=== PATIENT | female | born 1970 | race Caucasian/White ===

== ENCOUNTER 2016-12-30 05:46 | Emergency (ER) | payer OTHER ==
[2016-01-20 01:56] VITALS: BMI 33.2
[~2016-12-30 05:46] MED LIST: EMPAGLIFLOZIN; HYDROCODONE-APA1 TAB PO; IMITREX100 MG PO; LINAGLIPTIN; LYRICA25 MG PO; TOUJEO SOL300 UNIT/1 SC
== END 2016-12-30 06:58 | disposition home or self-care (01) ==
LOC: D.ER 05:46
DX: E10.40 Type 1 diabetes mellitus with diabetic neuropathy, unspecified (principal); Z79.4 Long term (current) use of insulin; M79.672 Pain in left foot; M79.671 Pain in right foot; F17.200 Nicotine dependence, unspecified, uncomplicated

== ENCOUNTER 2017-01-26 22:50 | Emergency (ER) | payer OTHER ==
[2016-01-20 01:56] VITALS: BMI 33.2
[2017-01-26 23:43] LABS: HEMATOCRIT 43.4 % (36.0-48.0); HEMOGLOBIN 14.4 g/dL (12-16); LYMPHOCYTES 29.2 % (15-50); MCH 29.3 pg (26.0-34.0); MCHC 33.2 g/dL (31.0-37.0); MCV 88.4 fL (80.0-100.0); MEAN PLATELET VOLUME 10.9 fL (7.4-10.4); NEUTROPHILS 65.3 % (40-80); PLATELET COUNT 177 10x3/uL (130-400); RBC 4.91 10x6/uL (4.00-5.40); RDW 13.7 % (11.5-14.5); WBC 10.5 10x3/uL (4.8-10.8)
[2017-01-26 23:55] LABS: ALBUMIN 3.2 g/dL (3.4-5.0); ALKALINE PHOSPHATASE 85 U/L (46-116); ALT (SGPT) 20 U/L (10-68); BILIRUBIN - TOTAL 0.47 mg/dL (0.2-1.3); CALC OSMOLALITY 283 mosm/kg (275-300); CALCIUM 8.5 mg/dL (8.5-10.1); CARBON DIOXIDE 23.5 mmol/L (21.0-32.0); CHLORIDE - SERUM 101 mmol/L (98-107); CREATININE - SERUM 0.7 mg/dL (0.6-1.3); POTASSIUM - SERUM 3.5 mmol/L (3.5-5.1); PROTEIN - SERUM 7.5 g/dL (6.4-8.2); SODIUM 138 mmol/L (136-145); UREA NITROGEN 14 mg/dL (7-18); eGFR NON AFRICAN AMERICAN > 90 mL/min (90-120)
[2017-01-26 23:57] LABS: GLUCOSE 217 mg/dL (74-106)
[2017-01-27 00:04] LABS: TROPONIN-I < 0.017 ng/mL (0.000-0.060)
== END 2017-01-27 00:54 | disposition home or self-care (01) ==
LOC: D.ER 22:50
PROVIDERS: Emergency Medicine
DX: J44.1 Chronic obstructive pulmonary disease with (acute) exacerbation (principal); R06.00 Dyspnea, unspecified; E11.9 Type 2 diabetes mellitus without complications; Z79.4 Long term (current) use of insulin

== ENCOUNTER 2017-02-02 23:29 | Emergency (ER) | payer OTHER ==
[2016-01-20 01:56] VITALS: BMI 33.2
== END 2017-02-03 01:26 | disposition home or self-care (01) ==
LOC: D.ER 23:29
DX: J20.9 Acute bronchitis, unspecified (principal); J44.9 Chronic obstructive pulmonary disease, unspecified; E11.9 Type 2 diabetes mellitus without complications; Z79.4 Long term (current) use of insulin; R09.89 Other specified symptoms and signs involving the circulatory and respiratory systems; R09.82 Postnasal drip; R06.2 Wheezing; R05 Cough; F17.200 Nicotine dependence, unspecified, uncomplicated

== ENCOUNTER 2017-04-29 02:11 | Emergency (ER) | payer OTHER ==
[2016-01-20 01:56] VITALS: BMI 33.2
[2017-04-29 02:44] LABS: BASOPHILS 0.2 % (0-2); HEMATOCRIT 45.1 % (36.0-48.0); HEMOGLOBIN 15.2 g/dL (12-16); IMMATURE GRANULOCYTES 0.3 % (0-5); LYMPHOCYTES 23.1 % (15-50); MCH 30.7 pg (26.0-34.0); MCHC 33.7 g/dL (31.0-37.0); MCV 91.1 fL (80.0-100.0); MEAN PLATELET VOLUME 11.1 fL (7.4-10.4); MONOCYTES 6.1 % (2-11); NEUTROPHILS 67.3 % (40-80); PLATELET COUNT 186 10x3/uL (130-400); RBC 4.95 10x6/uL (4.00-5.40); RDW 13.4 % (11.5-14.5); WBC 12.3 10x3/uL (4.8-10.8)
[2017-04-29 02:52] LABS: APPEARANCE CLEAR (CLEAR); BILIRUBIN NEGATIVE (NEGATIVE); COLOR YELLOW (YELLOW); GLUCOSE 1000 mg/dL (NEGATIVE); KETONE NEGATIVE (NEGATIVE); NITRITE NEGATIVE (NEGATIVE); PROTEIN NEGATIVE (NEGATIVE); UROBILINOGEN NORMAL (NORMAL)
[2017-04-29 02:56] LABS: ALBUMIN 3.5 g/dL (3.4-5.0); ALKALINE PHOSPHATASE 101 U/L (46-116); ALT (SGPT) 22 U/L (10-68); CALC OSMOLALITY 281 mosm/kg (275-300); CALCIUM 9.3 mg/dL (8.5-10.1); CARBON DIOXIDE 24.9 mmol/L (21.0-32.0); CHLORIDE - SERUM 102 mmol/L (98-107); CREATININE - SERUM 0.7 mg/dL (0.6-1.3); GLUCOSE 209 mg/dL (74-106); LIPASE 83 U/L (73-393); POTASSIUM - SERUM 3.8 mmol/L (3.5-5.1); PROTEIN - SERUM 8.1 g/dL (6.4-8.2); SODIUM 138 mmol/L (136-145); UREA NITROGEN 12 mg/dL (7-18); eGFR NON AFRICAN AMERICAN > 90 mL/min (90-120)
== END 2017-04-29 06:16 | disposition home or self-care (01) ==
LOC: D.ER 02:11
PROVIDERS: Emergency Medicine
DX: N83.202 Unspecified ovarian cyst, left side (principal); K52.9 Noninfective gastroenteritis and colitis, unspecified; E11.9 Type 2 diabetes mellitus without complications; Z79.4 Long term (current) use of insulin; J44.9 Chronic obstructive pulmonary disease, unspecified; F17.200 Nicotine dependence, unspecified, uncomplicated

== ENCOUNTER 2017-06-07 06:55 | Emergency (ER) | payer OTHER ==
[2016-01-20 01:56] VITALS: BMI 33.2
[2017-06-07 07:30] LABS: BASOPHILS 0.2 % (0-2); HEMATOCRIT 44.6 % (36.0-48.0); HEMOGLOBIN 15.3 g/dL (12-16); IMMATURE GRANULOCYTES 0.1 % (0-5); LYMPHOCYTES 29.7 % (15-50); MCH 30.8 pg (26.0-34.0); MCHC 34.3 g/dL (31.0-37.0); MCV 89.9 fL (80.0-100.0); MEAN PLATELET VOLUME 11.4 fL (7.4-10.4); MONOCYTES 6.1 % (2-11); NEUTROPHILS 57.9 % (40-80); PLATELET COUNT 183 10x3/uL (130-400); RBC 4.96 10x6/uL (4.00-5.40); RDW 13.2 % (11.5-14.5); WBC 8.1 10x3/uL (4.8-10.8)
[2017-06-07 07:42] LABS: ALBUMIN 3.4 g/dL (3.4-5.0); ALKALINE PHOSPHATASE 123 U/L (46-116); ALT (SGPT) 24 U/L (10-68); BILIRUBIN - TOTAL 0.23 mg/dL (0.2-1.3); CALC OSMOLALITY 280 mosm/kg (275-300); CALCIUM 8.6 mg/dL (8.5-10.1); CARBON DIOXIDE 22.9 mmol/L (21.0-32.0); CHLORIDE - SERUM 102 mmol/L (98-107); CREATININE - SERUM 0.8 mg/dL (0.6-1.3); GLUCOSE 254 mg/dL (74-106); POTASSIUM - SERUM 4.1 mmol/L (3.5-5.1); PROTEIN - SERUM 7.7 g/dL (6.4-8.2); SODIUM 135 mmol/L (136-145); UREA NITROGEN 18 mg/dL (7-18); eGFR NON AFRICAN AMERICAN 82 mL/min (90-120)
== END 2017-06-07 08:40 | disposition home or self-care (01) ==
LOC: D.ER 06:55
PROVIDERS: Emergency Medicine
DX: G89.29 Other chronic pain (principal); F17.200 Nicotine dependence, unspecified, uncomplicated

== ENCOUNTER 2017-09-14 12:00 | Emergency (ER) | payer OTHER ==
[2016-01-20 01:56] VITALS: BMI 33.2
== END 2017-09-14 14:18 | disposition home or self-care (01) ==
LOC: D.ER 12:00
DX: J32.9 Chronic sinusitis, unspecified (principal); J20.9 Acute bronchitis, unspecified; J44.9 Chronic obstructive pulmonary disease, unspecified; E11.9 Type 2 diabetes mellitus without complications; Z79.4 Long term (current) use of insulin; F17.200 Nicotine dependence, unspecified, uncomplicated

== ENCOUNTER 2018-06-20 21:13 | Emergency (ER) | payer SELFPAY ==
[~2018-06-20] VITALS: Ht 160 cm; Wt 79.5 kg
[2018-06-20 21:16] VITALS: BP 128/79; Ht 160 cm; Wt 79.5 kg
[2018-06-20] MEDS ORDERED: GLUCOPHAGE500 MG PO (21:18)
[2018-06-20] MEDS ORDERED: TORADOL10 MG PO (22:33)
[2018-06-20] MEDS ORDERED: KEFLEX500 MG PO (22:33)
== END 2018-06-20 22:57 | disposition home or self-care (01) ==
LOC: D.ER 21:13
DX: L02.811 Cutaneous abscess of head [any part, except face] (principal); E11.9 Type 2 diabetes mellitus without complications; F17.200 Nicotine dependence, unspecified, uncomplicated

== ENCOUNTER 2018-06-29 10:52 | Observation (INO) | payer SELFPAY ==
[2018-06-29] VITALS (13 sets, daily range): BP systolic 116–145; BP diastolic 61–87; BMI 31.6
[~2018-06-29] VITALS: Ht 160 cm; Wt 77.6 kg
--- NOTE | ~2018-06-29 | MORECARE ---
CASE MANAGEMENT DISCHARGE SUMMARY PATIENT: ANTONELLA MATHEWS UNIT: [id number] ADM DATE: 06/29/18 AGE: 48 : 70 SEX: F ROOM/BED: D.7167 AUTHOR: PANKAJ KIM PHYSICIAN: REFERRING PHYSICIAN: MOO WYATT MD DATE OF SERVICE: 06/30/18 Discharge Plan Patient Name: ANTONELLA MATHEWS Facility: [facility]:[place] : 1970 Planned Disposition: Home Anticipated Discharge Date: Discharge Date: Expected LOS: Initial Reviewer: [email or web address] Initial Review Date: 06/29/2018 Generated: 06/30/18 11:19 am DCP- Discharge Planning Updated by [email or web address]: Saritha Cooley on 06/29/18 12:[address] Met with patient regarding inability to obtain diabetic medications. Patient gives CM permission to discuss dc needs/plans in front of her father & step mother. Patient is independent with her care. Lives in a house with 1-2 steps entering. PCP: Dr. Wyatt. Pharmacy: [facility]. HHS: None. DME: glucose monitor, strips. Patient states she lost her insurance and has been UNABLE to obtain her Tujeo pen and other diabetic medication. States she HAS BEEN TAKING her son's Metformin. Patient states she relies on samples from her MD office, but has not been back for an appointment for a couple of months. CM obtained and handed to patient a VOUCHER for TUJEO, which will require a PRESCRIPTION in order to fill. Patient's NEW INSURANCE begins July 05, 2018. VOUCHER HANDED TO PATIENT in ER, with instructions that it will require a prescription. also, provided the [employer] discount list. Plans to return to her home upon discharge and states she will not require other services, at this time. Last DP export: 06/29/18 1:36 Patient Name: ANTONELLA MATHEWS Page [id number] at 1019 All edits/amendments must be made on the electronic document DICTATION DATE: 06/30/18 1018 PROSTHODONTIST/OWNER: LINA 06/30/18 1018 RPT#: [id number] DC DATE: STATUS: ADM IN [facility] [address] [place] [address] END OF REPORT
--- NOTE | ~2018-06-29 | MORECARE ---
CASE MANAGEMENT DISCHARGE SUMMARY PATIENT: ANTONELLA MATHEWS UNIT: [id number] ADM DATE: 06/29/18 AGE: 48 : 70 SEX: F ROOM/BED: D.1158 AUTHOR: PANKAJ KIM PHYSICIAN: REFERRING PHYSICIAN: MOO WYATT MD DATE OF SERVICE: 07/01/18 Discharge Plan Patient Name: ANTONELLA MATHEWS Facility: [facility]:[place] : 1970 Planned Disposition: Home Anticipated Discharge Date: 06/30/18 Discharge Date: 06/30/2018 Expected LOS: 1 Initial Reviewer: [email or web address] Initial Review Date: 06/29/2018 Generated: 07/01/18 12:07 pm DCP- Discharge Planning Updated by [email or web address]: Saritha Cooley on 06/29/18 12:[address] Met with patient regarding inability to obtain diabetic medications. Patient gives CM permission to discuss dc needs/plans in front of her father & step mother. Patient is independent with her care. Lives in a house with 1-2 steps entering. PCP: Dr. Wyatt. Pharmacy: [facility] HHS: None. DME: glucose monitor, strips. Patient states she lost her insurance and has been UNABLE to obtain her Tujeo pen and other diabetic medication. States she HAS BEEN TAKING her son's Metformin. Patient states she relies on samples from her MD office, but has not been back for an appointment for a couple of months. CM obtained and handed to patient a VOUCHER for TUJEO, which will require a PRESCRIPTION in order to fill. Patient's NEW INSURANCE begins July 05, 2018. VOUCHER HANDED TO PATIENT in ER, with instructions that it will require a prescription. also, provided the [employer] discount list. Plans to return to her home upon discharge and states she will not require other services, at this time. Last DP export: 06/30/18 9:19 Patient Name: ANTONELLA MATHEWS Page [id number] at 1107 All edits/amendments must be made on the electronic document DICTATION DATE: 07/01/18 1107 FITNESS MANAGER: LINA 07/01/18 1107 RPT#: [id number] DC DATE:06/30/18 STATUS: DIS IN [facility] [address] [facility] [address] [place] [address] END OF REPORT
--- NOTE | ~2018-06-29 | MORECARE ---
CASE MANAGEMENT DISCHARGE SUMMARY PATIENT: ANTONELLA MATHEWS UNIT: [id number] ADM DATE: 06/29/18 AGE: 48 : 70 SEX: F ROOM/BED: D.E12 AUTHOR: PANKAJ KIM PHYSICIAN: REFERRING PHYSICIAN: MOO BLANTON MD DATE OF SERVICE: 06/29/18 Discharge Plan Patient Name: ANTONELLA MATHEWS [facility] [facility] 1970 Planned Disposition: Anticipated Discharge Date: Discharge Date: Expected LOS: Initial Reviewer: [email or web address] Initial Review Date: 06/29/2018 Generated: 06/29/18 2:26 pm Patient Name: ANTONELLA MATHEWS Page [phone] at 1326 All edits/amendments must be made on the electronic document DICTATION DATE: 06/29/18 1326 ROBOT TECHNICIAN: LINA 06/29/18 1326 RPT#: [id number] DC DATE: STATUS: ADM IN [facility] [address] [place] [address] END OF REPORT
--- NOTE | ~2018-06-29 | MORECARE ---
CASE MANAGEMENT DISCHARGE SUMMARY PATIENT: ANTONELLA MATHEWS UNIT: [id number] ADM DATE: 06/29/18 AGE: 48 : 70 SEX: F ROOM/BED: D.4768 AUTHOR: PANKAJ KIM PHYSICIAN: REFERRING PHYSICIAN: MOO WYATT MD DATE OF SERVICE: 06/29/18 Discharge Plan Patient Name: ANTONELLA MATHEWS Facility: [facility]:[place] : 1970 Planned Disposition: Anticipated Discharge Date: Discharge Date: Expected LOS: Initial Reviewer: [email or web address] Initial Review Date: 06/29/2018 Generated: 06/29/18 2:54 pm Comments DCP- Discharge Planning Updated by [email or web address]: Saritha Cooley on 06/29/18 12:[address] Met with patient regarding inability to obtain diabetic medications. Patient gives CM permission to discuss dc needs/plans in front of her father & step mother. Patient is independent with her care. Lives in a house with 1-2 steps entering. PCP: Dr. Wyatt. Pharmacy: [facility]. HHS: None. DME: glucose monitor, strips. Patient states she lost her insurance and has been UNABLE to obtain her Tujeo pen and other diabetic medication. States she HAS BEEN TAKING her son's Metformin. Patient states she relies on samples from her MD office, but has not been back for an appointment for a couple of months. CM obtained and handed to patient a VOUCHER for TUJEO, which will require a PRESCRIPTION in order to fill. Patient's NEW INSURANCE begins July 05, 2018. VOUCHER HANDED TO PATIENT in ER, with instructions that it will require a prescription. also, provided the [employer] discount list. Plans to return to her home upon discharge and states she will not require other services, at this time. Last DP export: 06/29/18 12:26 Patient Name: ANTONELLA MATHEWS Page 10116 at 1354 All edits/amendments must be made on the electronic document DICTATION DATE: 06/29/18 1353 SECURITY SERVICES MANAGER: LINA 06/29/18 1353 RPT#: [id number] DC DATE: STATUS: ADM IN [facility] [address] [place] [address] END OF REPORT
--- NOTE | ~2018-06-29 | OP ---
PATIENT NAME: ANTONELLA MATHEWS MEDICAL RECORD: [id number] :70 LOCATION:D.M2 D.2128 ADMISSION DATE:06/29/18 SURGEON: VINNIE CLARKE MD DATE OF OPERATION: 06/30/2018 DATE OF SERVICE: 06/30/2018 PROCEDURES: 1. Left heart catheterization. 2. Selective coronary angiography. 3. Left ventriculogram. INDICATION: Chest pain compatible with angina. PROCEDURE IN DETAIL: After informed consent was obtained and after a detailed description of the risks, benefits as well as alternative therapies, the patient elected to proceed with angiogram and heart catheterization. The right radial area was prepped and draped in normal sterile fashion. Radial artery was cannulated via modified Seldinger technique with placement of 6-Ku[place]i sheath. All catheters exchanged through this sheath. FINDINGS: The left ventriculogram was performed in standard 30-degree COLBERT view, reveals good cardiac wall motion throughout all segments. Overall ejection fraction estimated at 60%. SELECTIVE CORONARY ANGIOGRAPHY: Left main, left anterior descending, left circumflex, and right coronary artery are all smooth-walled vessels with no angiographic evidence of coronary artery disease. OVERALL IMPRESSION: 1. No angiographic evidence of coronary artery disease. 2. Normal left heart pressures. 3. Normal left ventricular systolic function. Chest pain is noncardiac in etiology. No further cardiac workup needs to be ascertained. TRANSINT:[id number] Voice Confirmation ID: [id number] DOCUMENT ID: [id number] VINNIE CLARKE MD at 1457 CC: [id number] DICTATION DATE: 06/30/18 1217 FILM BOOKER: 06/30/18 1224 [place] [address]
--- NOTE | ~2018-06-29 | CN ---
PATIENT NAME:ANTONELLA BHATT MEDICAL RECORD: [id number] : 70 LOCATION:[facility] D.2128 ADMIT DATE: 06/29/18 ACCOUNT: [id number] CONSULTING PHYSICIAN: VINNIE CLARKE MD REFERRING PHYSICIAN: MOO BLANTON MD DATE OF CONSULTATION: 06/29/2018 DIAGNOSES: 1. Chest pain compatible with angina. 2. Family history of coronary artery disease. 3. Diabetes. 4. Smoking history. HISTORY OF PRESENT ILLNESS: Mrs. Bhatt presents with increasing episodes of chest discomfort. She was in the Emergency Room approximately 2-3 weeks ago with the same. She was discharged from the Emergency Room after a negative troponin. Her chest pain has worsened. She is getting very frequent episodes of chest pain that are getting more prolonged and harder. They are very compatible with angina. She has multiple risk factors as above. PHYSICAL EXAMINATION: GENERAL APPEARANCE: Well-nourished, well-developed, appears stated age. Level of distress, comfortable. PSYCHIATRIC: Mental status, alert, normal affect. Orientation, oriented to time, place and person. EYES: Lids and conjunctiva, noninjected. No discharge, no pallor. ENT: Lips, teeth, gums, normal dentition. Oropharynx, no cyanosis, no pallor. NECK: Carotid arteries, bilateral normal upstroke, no bruits, no thrills. JUGULAR VEINS: No jugular venous pressure or distention. CERVICAL LYMPH NODES: Nontender, nonenlarged. THYROID: Not enlarged. Nontender. No nodules. LUNGS: Respiratory effort, unlabored. CHEST: Normal curvature. No thoracic deformity. No chest wall tenderness. Percussion, resonant. Auscultation, clear. No wheezes, no rales, no rhonchi. CARDIOVASCULAR: Precordial exam, nondisplaced. No heaves or pericardial thrills. Rate and rhythm, regular. Heart sounds, normal S1, normal S2. No S3, no gallop, no rub. Systolic murmur, not heard. Diastolic murmur, not heard. EXTREMITIES: No cyanosis, no edema. Peripheral pulses, full and equal in all extremities, except as noted. No bruits appreciated. ABDOMEN: Soft, nondistended. Normal aorta. No bruit. Nontender. No masses. Liver, nontender, no hepatomegaly. Spleen, nontender, no splenomegaly. MUSCULOSKELETAL: No joint tenderness. No joint swelling. No erythema. NEUROLOGICAL: Normal gait, normal strength, normal tone. SKIN: Warm and dry. OVERALL IMPRESSION: Chest pain compatible with angina in an escalating fashion with multiple risk factors. We will proceed with coronary angiography. Further care depends upon the findings of the angiography. TRANSINT:[id number] Voice Confirmation ID: [id number] DOCUMENT ID: [id number] CONSULT REPORT [id number] ANTONELLA BHATT, VINNIE MARIN at 1457 CC: [id number] DICTATION DATE: 06/29/18 1459 ASSISTANT FRONT DESK MANAGER: 06/29/18 1515 ADM IN [place] [id number] [place] [id number]
--- NOTE | ~2018-06-29 | MORECARE ---
CASE MANAGEMENT DISCHARGE SUMMARY PATIENT: ANTONELLA MATHEWS UNIT: [id number] ADM DATE: 06/29/18 AGE: 48 : 70 SEX: F ROOM/BED: D.8413 AUTHOR: PANKAJ KIM PHYSICIAN: REFERRING PHYSICIAN: MOO WYATT MD DATE OF SERVICE: 06/29/18 Discharge Plan Patient Name: ANTONELLA MATHEWS Facility: [facility]:[place] : 1970 Planned Disposition: Anticipated Discharge Date: Discharge Date: Expected LOS: Initial Reviewer: [email or web address] Initial Review Date: 06/29/2018 Generated: 06/29/18 3:36 pm DCP- Discharge Planning Updated by [email or web address]: Saritha Cooley on 06/29/18 12:[address] Met with patient regarding inability to obtain diabetic medications. Patient gives CM permission to discuss dc needs/plans in front of her father & step mother. Patient is independent with her care. Lives in a house with 1-2 steps entering. PCP: Dr. Wyatt. Pharmacy: [facility]. HHS: None. DME: glucose monitor, strips. Patient states she lost her insurance and has been UNABLE to obtain her Tujeo pen and other diabetic medication. States she HAS BEEN TAKING her son's Metformin. Patient states she relies on samples from her MD office, but has not been back for an appointment for a couple of months. CM obtained and handed to patient a VOUCHER for TUJEO, which will require a PRESCRIPTION in order to fill. Patient's NEW INSURANCE begins July 05, 2018. VOUCHER HANDED TO PATIENT in ER, with instructions that it will require a prescription. also, provided the [employer] discount list. Plans to return to her home upon discharge and states she will not require other services, at this time. Last DP export: 06/29/18 12:54 Patient Name: ANTONELLA MATHEWS Page [phone] at 1436 All edits/amendments must be made on the electronic document DICTATION DATE: 06/29/18 1435 SPACE SYSTEMS OPERATIONS CRAFTSMAN: LINA 06/29/18 1435 RPT#: [id number] DC DATE: STATUS: ADM IN [facility] [address] [place] [address] END OF REPORT
--- NOTE | ~2018-06-29 | HEMODYNAMI ---
PATIENT:ANTONELLA MATHEWS MEDICAL RECORD: [id number] : 70 LOCATION:[facility] D.2128 ADMISSION DATE: 06/29/18 Generatedon:06/30/201812:18 Patient name: ANTONELLA MATHEWS Patient #: [id number] SSN: DO B: 1970 Date of study: 06/30/2018 Page: Of Hemodynamic Procedure Report Patient Data Patient Demographics Procedure consent was obtained First Name: ANTONELLA Gender: Female Last Name: BISI : 1970 Middle Initial: M Age: 48 year(s) Patient #: [id number] Race: Unknown Additional ID: [id number] Contact details [address]: [address] [place] [address] [address] State: [place] City: [place] Zip code: [address] Past Medical History Allergies Allergen Reaction Date Comments Reported Other allergy 01/20/2016 Sulfa, Codeine, gabapentin Other allergy 06/30/2018 Admission Admission Data Admission Date: 06/29/2018 Admission Time: 12:41 Admit Source: Other Room #: D.2128 Procedure Procedure Types Cath Procedure Diagnostic Procedure [facility] w/Coronaries Procedure Description Procedure Date Procedure Date: 06/30/2018 Procedure Start Time: 12:09 Procedure End Time: 12:14 Procedure Staff Name Function Jaime Keating MD Performing Physician Patrick Walls RT Monitor Hollie Black RT Scrub Srikanth Hi RN Nurse Procedure Data Cath Procedure Fluoroscopy Diagnostic fluoroscopy Total fluoroscopy Time: 0.8 time: 0.8 min min Diagnostic fluoroscopy Total fluoroscopy dose: 225 dose: 225 mGy mGy Contrast Material Contrast Material Type Amount (ml) Isovue 300 36 Entry Location Entry Primary Successful Side Size Upsize Upsize Entry Closure Ghotra ccessful Closure Location (Fr) 1 (Fr) 2 (Fr) Remarks Device Remarks Radial Right 6 Fr Mechanical artery Short Compression Estimated blood loss: 5 ml Diagnostic catheters Device Type Used For End Catheter Placement DIAGNOSTIC [place] 110cm 5 Procedure Fr catheter ([id number]) Procedure Complications No complications Procedure Medications Medication Administration Route Dosage 0.9% NaCl I.V. 100 ml/hr Oxygen etCO2 Nasal cannula 2 l/min Heparin Flush Bag added to field 2 bags (1000units/500ml NS) Lidocaine 2% added to field 20 Radial Cocktail added to field 1 syringe (Verapomil 2mg/Nitro 400mcg/Heparin 1500units) Versed I.V. 2 mg Fentanyl I.V. 100 mcg Radial Cocktail I.A. 1 syringe (Verapomil 2mg/Nitro 400mcg/Heparin 1500units) Versed I.V. 1 mg Fentanyl I.V. 50 mcg Hemodynamics Rest Heart Rate: 86 (bpm) Snapshots Pre Cath Intra NCS Post Cath Vital Signs Time Heart Resp SPO2 etCO2 NIBP Rhythm Pain Sedation Rate (ipm) (%) (mmHg) (mmHg) Status Level (bpm) 12:07:59 93 20 94 33.3 121/69(92) NSR 0 (11) 10(A) , No pain 12:13:00 98 14 92 32.6 113/63(84) NSR 0 (11) 10(A) , No pain Medications Time Medication Route Dose Verified Delivered Reason Notes Effectiveness by by 12:08:50 0.9% NaCl I.V. 100 Srikanth Srikanth Per ml/hr Sussy Hi physician RN RN 12:08:59 Oxygen etCO2 2 l/min Srikanth Srikanth Per Nasal Sussy Hi physician cannula RN RN 12:09:10 Heparin Flush added 2 bags Srikanth Srikanth used for Bag to Sussy Hi procedure (1000units/500ml [facility] RN RN NS) 12:09:21 Lidocaine 2% added 20ml Srikanth Srikanth for local to vial Lorigan Lorigan anesthetic field RN RN 12:09:32 Radial Cocktail added 1 Srikanth Srikanth used for (Verapomil to syringe Makedaigan Sussy procedure 2mg/Nitro field RN RN 400mcg/Heparin 1500units) 12:10:06 Radial Cocktail I.A. 1 Srikanth Jaime for (Verapomil syringe Loreduar Tauth MD vasodilation 2mg/Nitro RN 400mcg/Heparin 1500units) 12:10:41 Versed I.V. 2 mg Srikanth Srikanth for sedation Sussy Hi RN RN 12:10:53 Fentanyl I.V. 100 mcg Srikanth Srikanth for sedation Sussy Hi RN, RN 12:13:17 Versed I.V. 1 mg Srikanth Duke for sedation Sussy Hi RN, RN 12:13:25 Fentanyl I.V. 50 mcg Srikanth Duke for sedation Sussy Hi RN, RN Procedure Log Time Note 11:44:31 Informed consent obtained and on chart 11:44:34 Admit Source: Other 11:44:45 Diagnostic Cath status Elective 11:44:47 Hollie lBack RT(R) sent for patient. Start room use. 11:44:48 Time tracking: Regular hours (M-F 7:00 - 5:00) 11:44:52 Plan of Care:Hemodynamics will remain stable., Cardiac rhythm will remain stable., Comfort level will be maintained., Respiratory function will remain adequate., Patient/ family verbilizes understanding of procedure., Procedure tolerated without complication., Recovers from procedure without complications.. 11:45:11 H&P Date Dictated: 06/29/2018 Within 30 days and on chart.. 11:53:15 Patient received from Med II to CCL 2 Alert and oriented. Tansferred to table in Supine position. 11:53:16 Warm blankets applied, and neha hugger turned on for patient comfort. 11:53:16 Correct patient and procedure confirmed by team. 11:53:18 Pre-procedure instructions explained to patient. 11:53:18 Pre-op teaching completed and patient verbalized understanding. 11:53:19 Family in patients room. 12:06:51 ECG and BP/O2 sat monitors applied to patient. 12:06:51 Vital chart was started 12:06:52 Baseline sample Acquired. 12:06:55 Rhythm: sinus rhythm 12:06:56 Full Disclosure recording started 12:06:59 Patient NPO since Midnight. 12:07:07 Patient allergic to Other allergy 12:07:09 Is the patient allergic to Iodine/contrast media? No. 12:07:12 Is patient on blood thinner?Yes 12:08:50 0.9% NaCl 100 ml/hr I.V. was administered by Srikanth Hi RN; Per physician; 12:08:59 Oxygen 2 l/min etCO2 Nasal cannula was administered by Srikanth Hi RN; Per physician; 12:09:02 Patient diabetic? Yes. 12:09:03 If diabetic: On Metformin? Yes 12:09:05 If on Metformin: Last Dose? 06/29/2018 12:09:07 Previous problem with sedation/anesthesia? No ? 12:09:08 Snore? Yes 12:09:09 Sleep apnea? No 12:09:10 Heparin Flush Bag (1000units/500ml NS) 2 bags added to field was administered by Srikanth Hi RN; used for procedure; 12:09:10 Deviated septum? No 12:09:10 Opens mouth fully? Yes 12:09:11 Sticks out tongue? Yes 12:09:12 Airway obstruction? No ? 12:09:13 Dentures? No ? 12:09:15 Modified Kwadwo's test Ulnar < 7 seconds 12:09:17 Patient pain scale 0/10 ?. 12:09:20 IV patent on arrival in right hand with 0.9% NaCl at [facility]. 12:09:21 Lidocaine 2% 20ml vial added to field was administered by Srikanth Hi RN; for local anesthetic; 12:09:24 Lab results completed and on chart. 12:09:26 Right Radial & Right Groin area was prepped with chlora-prep and draped in sterile fashion 12:09:27 Alarms reviewed by R. N. 12:09:27 Sharps counted by scrub and verified by R.N. 12:09:29 Use device set Radial Dx or PCI 12:09:31 ACIST Syringe (91621) opened to sterile field. 12:09:31 Medline Cath Pack ([id number]) opened to sterile field. 12:09:32 Radial Cocktail (Verapomil 2mg/Nitro 400mcg/Heparin 1500units) 1 syringe added to field was administered by Srikanth Hi RN; used for procedure; 12:09:32 Bag Decanter () opened to sterile field. 12:09:33 DIAGNOSTIC WIRE .035 260cm J wire ([id number]) opened to sterile field. 12:09:33 ACIST Hand Control (02310) opened to sterile field. 12:09:33 ACIST Manifold (14077) opened to sterile field. 12:09:34 Tegaderm 4 x 4 (1626W) opened to sterile field. 12:09:34 MBrace Wrist Support ([id number]) opened to sterile field. 12:09:36 SHEATH 6FR Slender (801060) opened to sterile field. 12:09:45 Zero performed for pressure channel P1 12:09:46 Physician arrived 12::46 --------ALL STOP TIME OUT------ 12::47 Final Timeout: patient, procedure, and site verified with staff and physician. All members of the team are in agreement. 12:09:48 Right Radial & Right Groin site verified by team. 12:09:50 Physical assessment completed. ASA score P 2 - A patient with mild systemic disease as per Jaime Keating MD. 12::52 Sedation plan: IV Moderate Sedation Medication:Versed, Fentanyl 12::55 Procedure started. 12::58 Local anesthetic to right radial artery with Lidocaine 2% by Jaime Keating MD.INITIAL ACCESS ONLY 12:10:05 A 6 Fr Short sheath was inserted into the Right Radial artery 12:10:06 Radial Cocktail (Verapomil 2mg/Nitro 400mcg/Heparin 1500units) 1 syringe I.A. was administered by Jaime Keating MD; for vasodilation; 12:10:23 A DIAGNOSTIC [place] 110cm 5 Fr catheter ([id number]) was advanced over the wire and used for Procedure. 12:10:41 Versed 2 mg I.V. was administered by Srikanth Hi RN; for sedation; 12:10:45 LV gram done using COLBERT 12:10:47 Injector settings: Ml/sec: 5, Volume: 15, 12:10:48 LV hemodynamics recorded. 12:10:52 EF : 65 % 12:10:53 Fentanyl 100 mcg I.V. was administered by Srikanth Hi RN; for sedation; 12:11:10 LCA angiography performed. 12:11:29 RCA angiography performed. 12:11:48 Catheter removed. 12:11:49 TR BAND Standard ([id number]) opened to sterile field. 12:12:42 Sheath removed intact; hemostasis achieved with Mechanical Compression to the Right Radial artery. 12:12:43 Procedure ended.(Physican Out) 12:13:17 Versed 1 mg I.V. was administered by Srikanth Hi RN; for sedation; 12:13:25 Fentanyl 50 mcg I.V. was administered by Srikanth Hi RN; for sedation; 12:13:39 Fluoroscopy time 00.80 minutes. 12:13:44 Flurop Dose total: 225 12:13:44 Fluoroscopy dose: 225 mGy 12:13:56 Contrast amount:Isovue 300 36ml. 12:13:56 Sharps counted by scrub and verified by R.N. 12:13:58 TR band inflated with 10cc of air. 12:14:00 Insertion/operative site no bleeding no hematoma. 12:14:04 Post-procedure physical assessment completed. ASA score P 2 - A patient with mild systemic disease as per Jaime Keating MD. 12:14:06 Post procedure rhythm: unchanged. 12:14:08 Estimated blood loss: 5 ml 12:14:09 Post procedure instruction explained to patient.Patient verbalizes understanding. 12:14:10 Patient needs reinforcement of post procedure teaching. 12:14:42 Procedure and supply charges have been captured, reviewed, submitted and are correct. 12:14:43 Procedure Complication : No complications 12:14:45 Vital chart was stopped 12:14:45 See physician's report for complete and final results. 12:14:47 Report given to PCU. 12:14:49 Patient transfered to PCU with Stretcher. 12:14:50 Procedure ended. 12:14:50 Full Disclosure recording stopped 12:14:54 End room use (Document Last) Device Usage Item Name Manufacture Quantity Catalog Hospital Part Current Minimal Lot# / Number Charge Number Stock Stock Serial# Code ACIST Acist 1 87916 892605 336896 074299 20 Syringe Medical (30761) Systems Inc Medline Medline 1 [id number] 665540 17759 218150 5 Cath Pack ([id number]) Bag Microtek 1 615395 85330 802967 5 Decanter Medical Inc. () DIAGNOSTIC St Aj 1 393093 409954 422394 007522 30 WIRE .035 260cm J wire (308517) ACIST Hand Acist 1 60305 514488 490387 171411 5 Control Medical (61868) Systems Inc ACIST Acist 1 79174 218458 102168 659226 5 Manifold Medical (57716) Systems Inc Tegaderm 4 3M 1 1626W 479235 798191 115406 5 x 4 (1626W) MBrace Advanced 1 140-0250-00 803251 74631 884611 5 Wrist Vascular Support Dynamics ([id number]) SHEATH 6FR Terumo 1 [id number] 258889 946768 505305 5 Slender (801060) DIAGNOSTIC Terumo 1 405017 351705 899514 318642 5 [place] 110cm 5 Fr catheter (484819) TR BAND Terumo 1 [id number] 515393 392053 587962 40 Standard ([id number]) Signature Audit [place] Stage Time Signature Unsigned Intra-Procedure 06/30/2018 Patrick Walls 12:18:12 PM RT(R) Signatures Monitor : Patrick Walsl RT Signature : Date : Time : [id number] [place] [address]
[~2018-06-29 10:52] MED LIST changes: +GLUCOPHAGE500 MG PO; +KEFLEX500 MG PO; +TORADOL10 MG PO
[2018-06-29 11:39] LABS: BASOPHILS 0.4 % (0-2); HEMATOCRIT 42.2 % (36.0-48.0); HEMOGLOBIN 14.5 g/dL (12-16); IMMATURE GRANULOCYTES 0.5 % (0-5); LYMPHOCYTES 24.5 % (15-50); MCH 31.4 pg (26.0-34.0); MCHC 34.4 g/dL (31.0-37.0); MCV 91.3 fL (80.0-100.0); MEAN PLATELET VOLUME 11.5 fL (7.4-10.4); MONOCYTES 4.6 % (2-11); PLATELET COUNT 165 10x3/uL (130-400); RBC 4.62 10x6/uL (4.00-5.40); RDW 13.4 % (11.5-14.5)
[2018-06-29 12:11] LABS: ALBUMIN 3.2 g/dL (3.4-5.0); ALKALINE PHOSPHATASE 144 U/L (46-116); ALT (SGPT) 23 U/L (10-68); BILIRUBIN - TOTAL 0.22 mg/dL (0.2-1.3); CALC OSMOLALITY 288 mosm/kg (275-300); CALCIUM 8.7 mg/dL (8.5-10.1); CARBON DIOXIDE 21.3 mmol/L (21.0-32.0); CHLORIDE - SERUM 101 mmol/L (98-107); CKMB 0.6 U/L (0.0-3.6); CREATINE KINASE 92 UL (21-215); CREATININE - SERUM 0.8 mg/dL (0.6-1.3); POTASSIUM - SERUM 4.6 mmol/L (3.5-5.1); PROTEIN - SERUM 7.9 g/dL (6.4-8.2); SODIUM 136 mmol/L (136-145); TROPONIN-I < 0.017 ng/mL (0.000-0.060); UREA NITROGEN 7 mg/dL (7-18); eGFR NON AFRICAN AMERICAN 81 mL/min (90-120)
[2018-06-29 12:19] LABS: GLUCOSE 439 mg/dL (74-106)
[2018-06-30 02:01] VITALS: BP 119/57
[2018-06-30 05:42] VITALS: BP 111/53
[2018-06-30 06:00] LABS: BASOPHILS 0.3 % (0-2); EOSINOPHILS 5.7 % (0-7); HEMATOCRIT 42.6 % (36.0-48.0); HEMOGLOBIN 14.7 g/dL (12-16); IMMATURE GRANULOCYTES 0.3 % (0-5); LYMPHOCYTES 31.1 % (15-50); MCH 31.1 pg (26.0-34.0); MCHC 34.5 g/dL (31.0-37.0); MCV 90.3 fL (80.0-100.0); MEAN PLATELET VOLUME 10.9 fL (7.4-10.4); MONOCYTES 5.2 % (2-11); NEUTROPHILS 57.4 % (40-80); PLATELET COUNT 190 10x3/uL (130-400); RBC 4.72 10x6/uL (4.00-5.40); RDW 13.3 % (11.5-14.5)
[2018-06-30 06:20] LABS: ALBUMIN 3.1 g/dL (3.4-5.0); ALKALINE PHOSPHATASE 103 U/L (46-116); ALT (SGPT) 27 U/L (10-68); BILIRUBIN - TOTAL 0.45 mg/dL (0.2-1.3); CALCIUM 8.5 mg/dL (8.5-10.1); CARBON DIOXIDE 24.4 mmol/L (21.0-32.0); CHLORIDE - SERUM 100 mmol/L (98-107); CREATININE - SERUM 0.6 mg/dL (0.6-1.3); MAGNESIUM - SERUM 1.7 mg/dL (1.8-2.4); PROTEIN - SERUM 7.7 g/dL (6.4-8.2); SODIUM 135 mmol/L (136-145); eGFR NON AFRICAN AMERICAN > 90 mL/min (90-120)
[2018-06-30 06:23] LABS: CALC OSMOLALITY 275 mosm/kg (275-300); GLUCOSE 232 mg/dL (74-106); UREA NITROGEN 11 mg/dL (7-18)
[2018-06-30 08:02] VITALS: BP 114/51
[2018-06-30 10:49] VITALS: BP 121/58
[2018-06-30 12:57] VITALS: Ht 160 cm; Wt 77.6 kg
[2018-06-30 15:42] VITALS: BP 136/87
== END 2018-06-30 16:30 | disposition home or self-care (01) ==
LOC: D.ER 10:52 → OBSVTIME 12:41 → D.EDHOLD 12:41 → D.M2 12:41
PROVIDERS: Family Medicine
DX: R07.89 Other chest pain (principal); E11.65 Type 2 diabetes mellitus with hyperglycemia; F17.213 Nicotine dependence, cigarettes, with withdrawal

== ENCOUNTER 2018-08-05 11:17 | Emergency (ER) | payer OTHER ==
[~2018-08-05] VITALS: Ht 160 cm; Wt 77.7 kg
[2018-08-05 11:35] VITALS: Ht 160 cm; Wt 77.7 kg
[2018-08-05 12:10] LABS: BASOPHILS 0.2 % (0-2); EOSINOPHILS 2.7 % (0-7); HEMATOCRIT 44.3 % (36.0-48.0); HEMOGLOBIN 15.4 g/dL (12-16); IMMATURE GRANULOCYTES 0.2 % (0-5); LYMPHOCYTES 24.1 % (15-50); MCH 31.6 pg (26.0-34.0); MCHC 34.8 g/dL (31.0-37.0); MCV 90.8 fL (80.0-100.0); MEAN PLATELET VOLUME 11.8 fL (7.4-10.4); MONOCYTES 3.8 % (2-11); PLATELET COUNT 201 10x3/uL (130-400); RBC 4.88 10x6/uL (4.00-5.40); RDW 13.1 % (11.5-14.5); WBC 12.1 10x3/uL (4.8-10.8)
[2018-08-05 12:14] LABS: APPEARANCE CLEAR (CLEAR); COLOR YELLOW (YELLOW); GLUCOSE 1000 mg/dL (NEGATIVE); KETONE NEGATIVE (NEGATIVE); NITRITE NEGATIVE (NEGATIVE); PROTEIN NEGATIVE (NEGATIVE)
[2018-08-05 12:15] LABS: BILIRUBIN NEGATIVE (NEGATIVE); UROBILINOGEN NORMAL (NORMAL)
[2018-08-05] MEDS ORDERED: TRINTELLIX20 MG PO (12:27)
[2018-08-05 12:30] LABS: ALBUMIN 3.5 g/dL (3.4-5.0); ANION GAP 16.5 mmol/L (8-16); BILIRUBIN - TOTAL 0.23 mg/dL (0.2-1.3); CALCIUM 8.6 mg/dL (8.5-10.1); CARBON DIOXIDE 23.6 mmol/L (21.0-32.0); CREATININE - SERUM 0.9 mg/dL (0.6-1.3); MAGNESIUM - SERUM 2.1 mg/dL (1.8-2.4); POTASSIUM - SERUM 4.1 mmol/L (3.5-5.1); PROTEIN - SERUM 7.8 g/dL (6.4-8.2)
[2018-08-05 14:19] VITALS: BP 112/54
== END 2018-08-05 14:00 | disposition home or self-care (01) ==
LOC: D.ER 11:17
PROVIDERS: Family Medicine
DX: E11.65 Type 2 diabetes mellitus with hyperglycemia (principal); K59.00 Constipation, unspecified; F32.9 Major depressive disorder, single episode, unspecified

== ENCOUNTER 2019-03-14 10:07 | Emergency (ER) | payer OTHER ==
[~2019-03-14] VITALS: Ht 160 cm; Wt 74.5 kg
[~2019-03-14 10:07] MED LIST changes: +TRINTELLIX20 MG PO
[2019-03-14 10:10] VITALS: Ht 160 cm; Wt 74.5 kg
[2019-03-14] MEDS ORDERED: [UNRECOGNIZED DRUG - OTHER] (10:15)
[2019-03-14] MEDS ORDERED: HYDROCODON-ACE1 EA10 PO (10:16)
[2019-03-14] MEDS ORDERED: SUMATRIPTAN SUC25 MG PO (10:16)
[2019-03-14] MEDS ORDERED: BUPROPION HCL150 M1 PO (10:16)
[2019-03-14] MEDS ORDERED: AMOX TR-K CLV 21 TAB PO (10:16)
[2019-03-14] MEDS ORDERED: ADVAIR HFA [SP]12 GM INH (10:17)
[2019-03-14] MEDS ORDERED: PHENERGAN6.25 MG/5 PO (10:17)
[2019-03-14] MEDS ORDERED: ALBUTEROL1.25 MG/3 INH (10:17)
[2019-03-14] MEDS ORDERED: ALBUTEROL SULF8.5 GM INH (10:18)
[2019-03-14 10:39] LABS: BASOPHILS 0.2 % (0-2); HEMATOCRIT 43.9 % (36.0-48.0); HEMOGLOBIN 15.1 g/dL (12-16); IMMATURE GRANULOCYTES 0.5 % (0-5); LYMPHOCYTES 26.2 % (15-50); MCH 30.4 pg (26.0-34.0); MCHC 34.4 g/dL (31.0-37.0); MCV 88.5 fL (80.0-100.0); MEAN PLATELET VOLUME 10.8 fL (7.4-10.4); MONOCYTES 5.5 % (2-11); NEUTROPHILS 62.6 % (40-80); PLATELET COUNT 176 10x3/uL (130-400); RBC 4.96 10x6/uL (4.00-5.40); RDW 14.1 % (11.5-14.5); WBC 8.6 10x3/uL (4.8-10.8)
[2019-03-14 10:53] LABS: ALBUMIN 3.5 g/dL (3.4-5.0); ANION GAP 14.9 mmol/L (8-16); BILIRUBIN - TOTAL 0.33 mg/dL (0.2-1.3); CALCIUM 8.9 mg/dL (8.5-10.1); CARBON DIOXIDE 26.6 mmol/L (21.0-32.0); POTASSIUM - SERUM 4.5 mmol/L (3.5-5.1); PROTEIN - SERUM 7.8 g/dL (6.4-8.2)
[2019-03-14] MEDS ORDERED: ZPAK PO (14:02)
[2019-03-14] MEDS ORDERED: MUCINEX DM ER1 EAC1 PO (14:02)
[2019-03-14 14:43] VITALS: BP 116/75
== END 2019-03-14 14:44 | disposition home or self-care (01) ==
LOC: D.ER 10:07
PROVIDERS: Family Medicine
DX: J18.9 Pneumonia, unspecified organism (principal)

== ENCOUNTER 2019-05-17 15:11 | Emergency (ER) | payer OTHER ==
[~2019-05-17] VITALS: Ht 160 cm; Wt 72.7 kg
[~2019-05-17 15:11] MED LIST changes: +ADVAIR HFA [SP]12 GM INH; +ALBUTEROL SULF8.5 GM INH; +ALBUTEROL1.25 MG/3 INH; +AMOX TR-K CLV 21 TAB PO; +BUPROPION HCL150 M1 PO; +HYDROCODON-ACE1 EA10 PO; +MUCINEX DM ER1 EAC1 PO; +PHENERGAN6.25 MG/5 PO; +SUMATRIPTAN SUC25 MG PO; +ZPAK PO; +[UNRECOGNIZED DRUG - OTHER]
[2019-05-17 15:36] VITALS: Ht 160 cm; Wt 72.7 kg
[2019-05-17] MEDS ORDERED: ZOCOR10 MG PO (15:40)
[2019-05-17] MEDS ORDERED: VOLTAREN75 MG PO (20:34)
[2019-05-17 20:47] VITALS: BP 143/77
== END 2019-05-17 20:48 | disposition home or self-care (01) ==
LOC: D.ER 15:11
DX: R07.89 Other chest pain (principal); E11.9 Type 2 diabetes mellitus without complications; F32.9 Major depressive disorder, single episode, unspecified

== ENCOUNTER 2019-12-08 12:31 | Observation (INO) | payer OTHER ==
[~2019-12-08] VITALS: Ht 160 cm; Wt 72.5 kg
[~2019-12-08 12:31] MED LIST changes: +VOLTAREN75 MG PO; +ZOCOR10 MG PO
[2019-12-08] MEDS ORDERED: XIGDUO XR 10 M1 EAC1 PO (12:47)
[2019-12-08] MEDS ORDERED: OMEPRAZOLE40 MG PO (16:01)
[2019-12-09] MEDS ORDERED: LYRICA100 MG PO (02:57)
[2019-12-09 09:44] VITALS: BP 137/71
[2019-12-09 10:40] VITALS: Ht 160 cm; Wt 72.5 kg
== END 2019-12-09 12:38 | disposition home or self-care (01) ==
LOC: D.ER 12:31 → D.M2 14:34 → OBSVTIME 15:08 → D.M2 12-09 12:38
PROVIDERS: ADMIT Family Medicine; ATTEND Family Medicine
DX: E11.65 Type 2 diabetes mellitus with hyperglycemia (principal); E11.40 Type 2 diabetes mellitus with diabetic neuropathy, unspecified; E78.5 Hyperlipidemia, unspecified; F17.203 Nicotine dependence unspecified, with withdrawal

== ENCOUNTER 2020-11-02 22:09 | Emergency (ER) | payer MEDICARE ==
[~2020-11-02] VITALS: Ht 160 cm; Wt 72.3 kg
[~2020-11-02 22:09] MED LIST changes: +LYRICA100 MG PO; +OMEPRAZOLE40 MG PO; +XIGDUO XR 10 M1 EAC1 PO
[2020-11-02 22:13] VITALS: BP 130/73; Ht 160 cm; Wt 72.3 kg
[2020-11-02] MEDS ORDERED: METFORMIN HCL500 M1 PO (22:16)
[2020-11-02] MEDS ORDERED: [UNRECOGNIZED DRUG - REMARK] (22:16)
== END 2020-11-02 23:07 | disposition home or self-care (01) ==
LOC: D.ER 22:09
DX: S61.215A Laceration without foreign body of left ring finger without damage to nail, initial encounter (principal); E11.40 Type 2 diabetes mellitus with diabetic neuropathy, unspecified; Z79.84 Long term (current) use of oral hypoglycemic drugs; W26.0XXA Contact with knife, initial encounter; Y93.9 Activity, unspecified; Y92.9 Unspecified place or not applicable